=== PATIENT | male | born 1935 | race Two or more races ===

== ENCOUNTER 2019-06-27 13:55 | Outpatient (CLI) | payer MEDICARE, OTHER ==
--- NOTE | 2019-06-27 18:45 | Consultation ---
DATE OF CONSULTATION: 06/27/2019 CHIEF COMPLAINT: Rectal dysfunction. HISTORY OF PRESENT ILLNESS: This is a very pleasant 83-year-old male who came to office complaining of some signs and symptoms of erectile dysfunction. Denies any reflux. Denies any melena. Denies any hematochezia. No alarming sign or symptoms. Last colonoscopy was positive . Apparently, he had three polyps, which were removed. The patient also complained of heartburns daily. PAST MEDICAL HISTORY: 1. Hypertension. 2. . 3. Arthritis. 4. Low back pain. 5. History of colonic polyps. PAST SURGICAL HISTORY: Appendectomy. MEDICATIONS: Please see medication reconciliation list. ALLERGIES: No known drug allergy. FAMILY HISTORY: Noncontributory. SOCIAL HISTORY: The patient denies any tobacco, alcohol, or drug abuse. REVIEW OF SYSTEMS: A 10-point review of systems was performed and pertinent positives in HPI. PHYSICAL EXAMINATION: GENERAL: This is a well-developed male, in no acute distress. HEENT: Normocephalic and atraumatic. Sclerae anicteric. NECK: Supple. No obvious evidence of lymphadenopathy. CARDIOVASCULAR: Regular rate and rhythm. Plus S1 and S2. No obvious murmur. LUNGS: Clear to auscultation bilaterally. ABDOMEN: Positive bowel sounds. Soft and nontender. No rebound. No guarding. No peritoneal sign. EXTREMITIES: No cyanosis, no clubbing, no edema. ASSESSMENT/PLAN: This is an 83-year-old male with: 1. Chronic GERD for which we are going to start him on omeprazole 40 mg daily [id number] before breakfast. 2. Rectal dysfunction. The patient was educated about the signs and symptoms and problems with erectile dysfunction. The patient was told to stop the Cozaar for a week or so to see if his symptoms are getting better given that his symptoms started after he was started on Cozaar. We also recommended the patient to have a scheduled toileting every 3 hours. The patient was told to come back in a month for followup. Indra Roldan M.D. DR: JAMAR JOB#: [id number] CC:
[2019-06-28] MEDS ORDERED: GLUCOSAMINE1000 M1 PO (09:03)
[2019-06-28] MEDS ORDERED: COZAAR50 MG ORAL (09:03)
[2019-06-28] MEDS ORDERED: CIALIS5 MG PO (09:03)
[2019-06-28] MEDS ORDERED: NORVASC5 MG ORAL (09:03)
[2019-06-28] MEDS ORDERED: COQ-10100 M1 PO (09:03)
[2019-06-28] MEDS ORDERED: ATORVASTATIN CA10 MG ORAL (09:03)
== END 2019-06-27 15:55 | disposition home or self-care (01) ==
LOC: PAN 13:55
DX: N28.9 Disorder of kidney and ureter, unspecified (principal); I10 Essential (primary) hypertension; M19.90 Unspecified osteoarthritis, unspecified site; Z86.010 Personal history of colon polyps; Z90.89 Acquired absence of other organs; K21.9 Gastro-esophageal reflux disease without esophagitis
CPT/HCPCS: 99202